=== PATIENT | female | born 1970 | race Caucasian/White ===

== ENCOUNTER → 2018-05-04 16:23 | Outpatient (CLI) | payer BC, SELFPAY ==
[2017-07-13 06:45] VITALS: BMI 45.3
--- NOTE | 2018-05-04 | IMM_PTH ---
PATIENT: SIOBHAN DYER LOC: [facility] U#:[id number] AGE/SX: 54/F ROOM: RE05/04/[address]: Dr. Johnny Gonzales MD : 1970 BED: DIS: SPEC #: [id number] RECD: 05/08/18 13:51 STATUS: BLUE TYRON #: [id number] DARIA: 05/04/18 00:[address]: Johnny Gonzales DEPT: IMMUNOHISTOCHEMISTRY RECD BY: Shirin Gay Tissues: B - Stomach, NOS Procedures: H Pylori (initial) PHYSICIAN & INSTITUTION [place] [id number] SPECIMEN INFORMATION: Tissue Source: B - Gastric antrum/body biopsy Clinical Info: GERD, nausea, vomiting Specimen Number: [id number] CPT code: 28712 METHODOLOGY: Deparaffinized sections of prefer/formalin-fixed tissue or PAP/DQ stained slides are incubated with monoclonal/polyclonal antibodies/oligonucleotide probes. Localization is made via biotin free immunoperoxidase method. Appropriate controls are performed and reacted as expected. Results on target cell population are indicated in the following table: RESULTS: ANTIBODY / CLONE RESULT Block B H Pylori (polyclonal) negative These tests were developed and their performance characteristics determined by [facility]. They may not have been cleared or approved by the [place]. Food and Drug Administration. The FDA has determined that such clearance or approval is not necessary. INTERPRETATION: B. Gastric antrum/body, biopsy: Negative for Helicobacter pylori organisms. AM:rashawn 05/09/18
--- NOTE | 2018-05-04 13:17 | EGD_PTH ---
PATIENT: SIOBHAN DYER [facility] U#:[id number] AGE/SX: 54/F ROOM: RE05/04/[address]: Dr. Johnny Gonzales MD : 1970 BED: DIS: SPEC #: [id number] RECD: 05/04/18 15:56 STATUS: BLUE TYRON #: [id number] DARIA: 05/04/18 13:[address]: Johnny Gonzales DEPT: SURGICAL PATHOLOGY RECD BY: Thomas Huerta ENTERED: 05/07/18 09:31 SP TYPE: EGD BIOPSY OT DR: GIL Tissues: A - Duodenum, NOS B - Gastric mucous membrane Procedures: Surgery Specimen Level IV HEADER OPERATION: EGD with biopsies PRE-OP DIAGNOSIS: GERD, nausea, vomiting TISSUE SUBMITTED: A - Duodenal biopsies, rule out celiac, B - Gastric antrum body biopsies MICROSCOPIC DIAGNOSIS A. Duodenum, biopsy: No pathologic diagnosis. B. Gastric antrum/body, biopsy: Mild chronic inflammation. See comment. AM:rashawn 05/08/18 COMMENT B. The results of immunohistochemistry for Helicobacter pylori will be reported separately ([id number]). MICROSCOPIC DESCRIPTION Slides are reviewed. GROSS DESCRIPTION A - Received in fixative is one container labeled with the patient's name and designated duodenal biopsy. The specimen consists of multiple irregular fragments of light barron soft tissue that in aggregate measure 1 x 0.2 x 0.1 cm. The specimen is totally submitted in one cassette. B - Received in fixative is one container labeled with the patient's name and designated gastric antrum. The specimen consists of two irregular fragments of light barron soft tissue that in aggregate measure 0.6 x 0.2 x 0.1 cm. The specimen is totally submitted in one cassette. / AM:rashawn 05/07/18 TC:5 CPT: 02534 x2
== END ==
PROVIDERS: Referring Provider Internal Medicine Gastroenterology; Visit Provider Internal Medicine Gastroenterology
DX: K29.50 Unspecified chronic gastritis without bleeding (principal); K21.9 Gastro-esophageal reflux disease without esophagitis
CPT/HCPCS: 88305; 88342